=== PATIENT | female | born 1990 | race Two or more races ===

== ENCOUNTER 2017-03-24 19:51 | Emergency (ER) | payer OTHER ==
[2017-03-24] MEDS: DIPHTH,PERTUSS(ACELL),TET TOX 0.5 ML DISP.SYRIN. VAX IM (20:36)
== END 2017-03-24 20:43 | disposition home or self-care (01) ==
LOC: ER 19:51
DX: S61.211A Laceration without foreign body of left index finger without damage to nail, initial encounter (principal); W26.8XXA Contact with other sharp object(s), not elsewhere classified, initial encounter; Y93.89 Activity, other specified; Y92.89 Other specified places as the place of occurrence of the external cause; Y99.8 Other external cause status
CPT/HCPCS: 12001; 90471; 90715; 99283-25

== ENCOUNTER 2018-08-12 18:35 | Emergency (ER) | payer OTHER ==
[~2018-08-12] VITALS: Ht 154.9 cm; Wt 63.5 kg
[2018-08-12] MEDS ORDERED: IV NORMAL SALINE 1000ML BAG 1,000 ML IV ONE (19:30)
--- NOTE | 2018-08-12 19:37 | PHYS DOC ---
Past Medical History Past Medical History: No Pertinent History (WILLIAMS BOYCE APRN) Past Surgical History: No Surgical History (WILLIAMS BOYCE APRN) Alcohol Use: None Drug Use: None (WILLIAMS BOYCE APRN) Adult General Chief Complaint Chief Complaint: MULTIPLE COMPLAINTS HPI HPI Patient is a 28 year old [female] who presents with [nausea and vomiting approximately 2 hours prior to coming to ER. Patient repeat ports that she had been eating and shortly afterwards she started to feel really flushed of the lightheaded and had several episodes of sequential vomiting. Reports she also f elt like she had some palpitations at that time. Reports an history of palpitations possibly one year ago. Reports that episode began year ago lasted approximately 20 minutes. Reports today her during the palpitations lasted approximately 10-15 minutes. Reports she has never sought treatment for her palpitations reports she has never checked her pulse while doing this as it happens infrequently. Does report some headache right now. Reports that she had taken some ibuprofen approximately one hour ago, 800 milligrams, and she had had some this morning as well for headache which had started this morning. Reports she does not frequently get headaches similar to this. Also reports she has had very irregular menstrual cycles with her last one being a little over a month ago and one prior to that was 2 years ago, she had been on nexplanon at that time. ] (WILLIAMS BOYCE APRN) Review of Systems Review of Systems Constitutional: Denies fever or chills [] Eyes: Denies change in visual acuity, redness, or eye pain [] HENT: Denies nasal congestion or sore throat [] Respiratory: Denies cough or shortness of breath [] Cardiovascular: No additional information not addressed in HPI [] GI: Denies abdominal pain, nausea, vomiting, bloody stools or diarrhea, reports she did have nausea earlier and vomiting earlier but has not had any for approximately 1-1/2 hours. [] : Denies dysuria or hematuria [] Musculoskeletal: Denies back pain or joint pain [] Integument: Denies rash or skin lesions [] Neurologic: Denies headache, focal weakness or sensory changes [] Endocrine: Denies polyuria or polydipsia [] All other systems were reviewed and found to be within normal limits, except as documented in this note. (WILLIAMS BOYCE APRN) Current Medications Current Medications Current Medications Medications (Trade) Dose Ordered Sig/Ivon Start Time Stop Time Status Last Admin Dose Admin Potassium Chloride (Klor-Con) 20 meq 1X ONCE 08/12/18 20:45 08/12/18 20:49 DC 08/12/18 21:29 20 MEQ Sodium Chloride 1,000 ml @ 1,000 mls/hr 1X ONCE 08/12/18 19:30 08/12/18 20:29 DC 08/12/18 19:36 1,000 MLS/HR (JIMMIE BURNS R DO) Allergies Allergies Allergies Coded Allergies Type Severity Reaction Last Updated Verified No Known Drug Allergies 03/24/17 No (BURNSJIMMIE LIANG R DO) Physical Exam Physical Exam Constitutional: Well developed, well nourished, no acute distress, non-toxic appearance. [] HENT: Normocephalic, atraumatic, bilateral external ears normal, oropharynx m oist, no oral exudates, nose normal. [] Eyes: PERRLA, EOMI, conjunctiva normal, no discharge. [] Neck: Normal range of motion, no tenderness, supple, no stridor. [] Cardiovascular:Heart rate regular rhythm, no murmur [] Lungs & Thorax: Bilateral breath sounds clear to auscultation [] Abdomen: Bowel sounds normal, soft, no tenderness, no masses, no pulsatile masses. Minimal tenderness to lower abdomen noted generalized. Normal bowel sounds. No localized tenderness [] Skin: Warm, dry, no erythema, no rash. [] Back: No tenderness, no CVA tenderness. [] Extremities: No tenderness, no cyanosis, no clubbing, ROM intact, no edema. [] Neurologic: Alert and oriented X 3, normal motor function, normal sensory function, no focal deficits noted. [] Psychologic: Affect normal, judgement normal, mood normal. [] (WILLIAMS BOYCE APRN) Current Patient Data Vital Signs Vital Signs Date Time Temp Pulse Resp B/P (MAP) Pulse Ox O2 Delivery O2 Flow Rate FiO2 08/12/18 21:29 90 96/64 (75) 99 08/12/18 19:00 98.2 16 Room Air 98.2 (BURNSJIMMIE LIANG R DO) Lab Values Laboratory Tests Test 08/12/18 18:38 08/12/18 19:05 08/12/18 19:13 Urine Collection Type Void Urine Color Yellow Urine Clarity Cloudy Urine pH 6.5 Urine Specific [place] >=1.030 Urine Protein 100 mg/dL (NEG-TRACE) Urine Glucose (UA) Negative mg/dL (NEG) Urine Ketones (Stick) Trace mg/dL (NEG) Urine Blood Negative (NEG) Urine Nitrite Negative (NEG) Urine Bilirubin Negative (NEG) Urine Urobilinogen Dipstick 1.0 mg/dL (0.2 mg/dL) Urine Leukocyte Esterase Small (NEG) Urine RBC 0 /HPF (0-2) Urine WBC Occ /HPF (0-4) Urine Squamous Epithelial Cells Many /LPF Urine Bacteria 0 /HPF (0-FEW) Urine Mucus Marked /LPF White Blood Count 8.9 x10^3/uL (4.0-11.0) Red Blood Count 4.02 x10^6/uL (3.50-5.40) Hemoglobin 12.7 g/dL (12.0-15.5) Hematocrit 36.8 % (36.0-47.0) Mean Corpuscular Volume 92 fL (79-100) Mean Corpuscular Hemoglobin 32 pg (25-35) Mean Corpuscular Hemoglobin Concent 34 g/dL (31-37) Red Cell Distribution Width 13.1 % (11.5-14.5) Platelet Count 324 x10^3/uL (140-400) Neutrophils (%) (Auto) 67 % (31-73) Lymphocytes (%) (Auto) 30 % (24-48) Monocytes (%) (Auto) 3 % (0-9) Eosinophils (%) (Auto) 1 % (0-3) Basophils (%) (Auto) 0 % (0-3) Neutrophils # (Auto) 5.9 x10^3uL (1.8-7.7) Lymphocytes # (Auto) 2.6 x10^3/uL (1.0-4.8) Monocytes # (Auto) 0.2 x10^3/uL (0.0-1.1) Eosinophils # (Auto) 0.1 x10^3/uL (0.0-0.7) Basophils # (Auto) 0.0 x10^3/uL (0.0-0.2) Sodium Level 140 mmol/L (136-145) Potassium Level 3.1 mmol/L (3.5-5.1) L Chloride Level 103 mmol/L (98-107) Carbon Dioxide Level 26 mmol/L (21-32) Anion Gap 11 (6-14) Blood Urea Nitrogen 26 mg/dL (7-20) H Creatinine 0.7 mg/dL (0.6-1.0) Estimated GFR (Cockcroft-Gault) 99.6 BUN/Creatinine Ratio 37 (6-20) H Glucose Level 128 mg/dL (70-99) H Calcium Level 9.0 mg/dL (8.5-10.1) Total Bilirubin 0.3 mg/dL (0.2-1.0) Aspartate Amino Transferase (AST) 19 U/L (15-37) Alanine Aminotransferase (ALT) 27 U/L (14-59) Alkaline Phosphatase 69 U/L (46-116) Troponin I Quantitative < 0.017 ng/mL (0.000-0.055) Total Protein 7.2 g/dL (6.4-8.2) Albumin 3.8 g/dL (3.4-5.0) Albumin/Globulin Ratio 1.1 (1.0-1.7) Thyroid Stimulating Hormone (TSH) 2.259 uIU/mL (0.358-3.74) POC Urine HCG, Qualitative Hcg negative (Negative) Laboratory Tests 08/12/18 19:05 Laboratory Tests 08/12/18 19:05 (JIMMIE BURNS DO) EKG EKG [] (WILLIAMS BOYCE APRN) Radiology/Procedures Radiology/Procedures [] (WILLIAMS BOYCE APRN) Course & Med Decision Making Course & Med Decision Making Pertinent Labs and Imaging studies reviewed. (See chart for details) [Patient reports she does feel much better after resting and hydration. Discussed findings with patient with mild hypokalemia. Discussed continue rest and hydration at home. Discussed follow-up as needed with primary care. Patient will no further questions or concerns states she feels much better at this time advised patient to consider following up with her primary care to have a Holter monitor if she continues to have palpitations or if she has palpitations again. (WILLIAMS BOYCE APRN) Dragon Disclaimer Dragon Disclaimer This electronic medical record was generated, in whole or in part, using a voice recognition dictation system. (WILLIAMS BOYCE APRN) Departure Departure Impression: Primary Impression: Fatigue Additional Impressions: Hypokalemia Nausea & vomiting Disposition: 01 HOME, SELF-CARE Condition: GOOD Referrals: NO PCP (PCP) Patient Instructions: Hypokalemia, Nausea and Vomiting Additional Instructions: As we discussed, stay hydrated Follow up with your primary care provider Attending Signature Attending Signature I have reviewed the PA/IVORY CARVER's note and plan of care. I was available for consultation as needed during the patient's visit in the emergency department. I agree with the clinical impression, plan, and disposition. (JIMMIE BURNS DO) Problem Qualifiers WILLIAMS BOYCE APRN August 12, 2018 19:37 JIMMIE BURNS DO August 13, 2018 05:24
[2018-08-12 19:38] LABS: BASO % 0 % (0-3); EOS # 0.1 x10^3/uL (0.0-0.7); EOS % 1 % (0-3); HEMATOCRIT 36.8 % (36.0-47.0); HEMOGLOBIN 12.7 g/dL (12.0-15.5); LYMPH # 2.6 x10^3/uL (1.0-4.8); LYMPH % 30 % (24-48); MEAN CORPUSCULAR HEMOGLOBIN 32 pg (25-35); MEAN CORPUSCULAR HGB CONC 34 g/dL (31-37); MEAN CORPUSCULAR VOLUME 92 fL (79-100); MONO # 0.2 x10^3/uL (0.0-1.1); MONO % 3 % (0-9); NEUT # 5.9 x10^3uL (1.8-7.7); NEUT % 67 % (31-73); PLATELET COUNT 324 x10^3/uL (140-400); RED BLOOD COUNT 4.02 x10^6/uL (3.50-5.40); RED CELL DISTRIBUTION WIDTH 13.1 % (11.5-14.5); WHITE BLOOD COUNT 8.9 x10^3/uL (4.0-11.0)
[2018-08-12 19:40] LABS: BILIRUBIN,URINE NEGATIVE (NEG); CLARITY,URINE CLOUDY; COLOR,URINE YELLOW; NITRITE,URINE NEGATIVE (NEG); PH,URINE 6.5; PROTEIN,URINE 100 mg/dL (NEG-TRACE)
[2018-08-12 19:44] LABS: BACTERIA,URINE 0 /HPF (0-FEW); RBC,URINE 0 /HPF (0-2); SQUAMOUS EPITHELIAL CELL,UR MANY /LPF; WBC,URINE OCC /HPF (0-4)
[2018-08-12 19:46] LABS: CREATININE 0.7 mg/dL (0.6-1.0); GFR 99.6; POTASSIUM 3.1 mmol/L (3.5-5.1)
[2018-08-12 19:53] LABS: ALBUMIN 3.8 g/dL (3.4-5.0); ALBUMIN/GLOBULIN RATIO 1.1 (1.0-1.7); TOTAL BILIRUBIN 0.3 mg/dL (0.2-1.0); TOTAL PROTEIN 7.2 g/dL (6.4-8.2)
[2018-08-12] MEDS ORDERED: POTASSIUM CHLORIDE 20 MEQ TABLET.ER. PO ONE (20:45)
[2018-08-12 21:29] VITALS: BP 96/64
== END 2018-08-12 21:40 | disposition home or self-care (01) ==
LOC: ER 18:35
DX: R11.2 Nausea with vomiting, unspecified (principal); R53.83 Other fatigue; E87.6 Hypokalemia; R10.84 Generalized abdominal pain
CPT/HCPCS: 36415; 80053; 81001; 81025; 84443; 84484; 85025; 87086; 96360; 96361; 99285; J7030